=== PATIENT | female | born 1945 | race Caucasian/White ===

== ENCOUNTER 2021-06-11 09:12 | Emergency (ER) | payer OTHER ==
[~2021-06-11] VITALS: Ht 162.6 cm; Wt 69.9 kg
[2021-06-11] MEDS ORDERED: ATORVASTATIN CA10 MG PO (09:30)
[2021-06-11] MEDS ORDERED: JANUVIA25 MG PO (09:31)
[2021-06-11] MEDS ORDERED: VAZALORE81 MG PO (09:31)
[2021-06-11] MEDS ORDERED: ZESTRIL2.5 MG PO (09:32)
[2021-06-11] MEDS ORDERED: BISOPROLOL FUMAR5 MG PO (09:32)
[2021-06-11] MEDS ORDERED: FENOFIBRATE50 MG PO (09:32)
[2021-06-11] MEDS ORDERED: CALCIUM500 M2 PO (09:32)
== END 2021-06-11 14:58 | disposition home or self-care (01) ==
LOC: ER 09:12
DX: I10 Essential (primary) hypertension (principal); Z86.39 Personal history of other endocrine, nutritional and metabolic disease

== ENCOUNTER 2022-07-01 12:39 | Outpatient (CLI) | payer OTHER ==
[~2022-07-01 12:39] MED LIST: ATORVASTATIN CA10 MG PO; BISOPROLOL FUMAR5 MG PO; CALCIUM500 M2 PO; FENOFIBRATE50 MG PO; JANUVIA25 MG PO; VAZALORE81 MG PO; ZESTRIL2.5 MG PO
== END 2022-07-01 12:41 | disposition home or self-care (01) ==
LOC: NUCLEAR 12:39
PROVIDERS: ATTEND Obstetrics & Gynecology
DX: M81.0 Age-related osteoporosis without current pathological fracture (principal)

== ENCOUNTER 2022-07-04 10:43 | Outpatient (CLI) | payer OTHER | END 2022-07-04 10:55 | disposition home or self-care (01) | LOC: MAMO-SONO 10:43 | PROVIDERS: ATTEND Specialist | DX: N60.12 Diffuse cystic mastopathy of left breast (principal); N64.4 Mastodynia; Z80.3 Family history of malignant neoplasm of breast; R10.2 Pelvic and perineal pain; D25.9 Leiomyoma of uterus, unspecified ==

== ENCOUNTER 2022-09-06 11:43 | Outpatient (CLI) | payer OTHER | END 2022-09-06 11:48 | disposition home or self-care (01) | LOC: MAMO-SONO 11:43 | PROVIDERS: ATTEND Specialist | DX: N64.4 Mastodynia (principal); N63.0 Unspecified lump in unspecified breast; R92.0 Mammographic microcalcification found on diagnostic imaging of breast ==

== ENCOUNTER 2024-02-22 09:46 | Outpatient (CLI) | payer OTHER | END 2024-02-22 09:47 | disposition home or self-care (01) | LOC: NUCLEAR 09:46 | PROVIDERS: ATTEND Internal Medicine | DX: I35.0 Nonrheumatic aortic (valve) stenosis (principal) ==